=== PATIENT | female | born 1960 | race African-American/Black ===

== ENCOUNTER 2016-07-09 13:01 | Emergency (ER) | payer OTHER ==
[~2016-07-09] VITALS: Ht 162.6 cm; Wt 75.0 kg
[2016-07-09] MEDS ORDERED: NITROGLYCERIN 0.4MG TABLET SL SL PRN (14:00)
[2016-07-09] MEDS ORDERED: ASPIRIN 81MG TABLET PO ONE (14:00)
[2016-07-09] MEDS ORDERED: SODIUM CHLORIDE 0.9% 10ML VIAL ONE (14:20)
[2016-07-09] MEDS ORDERED: IOHEXOL-350 100 ML BOTTLE ONE (14:20)
[2016-07-09 14:23] LABS: BASOPHILS % 0.5 % (0.0-2.0); DIFFERENTIAL COMMENT 0; EOSINOPHILS % 3.2 % (0.0-5.0); HEMATOCRIT. 29.2 % (36.0-48.0); HEMOGLOBIN. 9.8 g/dL (12.0-16.0); LYMPHOCYTES % 25.9 % (20.0-50.0); MEAN CORPUSCULAR HEMOGLOBIN 36.7 pg (28.0-32.0); MEAN CORPUSCULAR HGB CONC 33.5 g/dL (31.0-37.0); MEAN CORPUSCULAR VOLUME 109.5 fL (81.0-99.0); MEAN PLATELET VOLUME 7.9 fl (7.4-10.4); MONOCYTES % 5.7 % (2.0-8.0); NEUTROPHILS % 64.7 % (40.0-76.0); PLATELET 233 x1000/uL (130-400); RED BLOOD CELL COUNT 2.67 mill/uL (4.2-5.4); RED CELL DISTRIBUTION WIDTH 15.3 % (11.6-14.6); WHITE BLOOD COUNT 5.6 x1000/uL (4.5-11.0)
[2016-07-09 14:27] LABS: CHLORIDE 116 mEq/L (98-107); INDEX HEMOLYSI 1 (1-3); INDEX ICTERIC 1 (1-4); INDEX LIPEMIC 1 (1-3); INR 1.4; PROTHROMBIN TIME 14.5 sec
[2016-07-09 14:28] LABS: CALCIUM 7.9 mg/dL (8.5-10.1)
[2016-07-09 14:32] LABS: ALBUMIN 2.9 g/dL (3.4-5.0); ANION GAP 11; CARBON DIOXIDE 23 mEq/L (21-32); UREA NITROGEN BLOOD 16 mg/dL (7-21)
[2016-07-09 14:37] LABS: ALANINE AMINOTRANSFERASE 62 IU/L (13-61); NT PRO B-TYPE NATRIURETIC PEP 347 pg/mL (5-125); TROPONIN I < 0.02 ng/mL (0.00-0.04); eGFR 40 mL/min (>60)
[2016-07-09 18:10] VITALS: BP 167/54
== END 2016-07-09 18:13 | disposition home or self-care (01) ==
LOC: ER 13:12
DX: R07.89 Other chest pain (principal); R06.00 Dyspnea, unspecified; E11.9 Type 2 diabetes mellitus without complications; I10 Essential (primary) hypertension; Z86.718 Personal history of other venous thrombosis and embolism
CPT/HCPCS: 36415; 71010; 71275; 80053; 83880; 84484; 85025; 85610; 93005; 99285; A4216; Q9967; Z7610